=== PATIENT | male | born 1945 | race Caucasian/White ===

== ENCOUNTER 2018-05-30 20:53 | Emergency (ER) | payer OTHER ==
[~2018-05-30] VITALS: Ht 177.8 cm; Wt 95.2 kg
--- OUTSIDE RECORDS SUMMARY | ~2018-05-30 | XMS | Clinical Summary ---
Demographics + + + | Address | [address] | | | [place] [address] | + + + | Home Phone | | + + + | Preferred Language | Unknown | + + + | Marital Status | Single | + + + | Yazidi Affiliation | Unknown | + + + | Race | Unknown | + + + | Ethnic Group | Other Race | + + + Author + + + | Author | NON REVENUE LOCATIONS | + + + | Organization | NON REVENUE LOCATIONS | + + + | Address | Unknown | + + + | Phone | Unavailable | + + + Support + + +---------+ + | Name | Relationship | Address | Phone | + + +---------+ + | Sarah Romero | ECON | Unknown | | + + +---------+ + Care Team Providers + +------+ + | Care Central Stores Attendant Name | Role | Phone | + +------+ + | No Pcp Per Patient | PP | Unavailable | + +------+ + Source Comments BRAVO is fully live on both [facility] Ambulatory and [facility] InPatient.[facility] Allergies No Known Allergies Current Medications + + +-------+---------+------+------+-------+ | Prescription | Sig. | Disp. | Refills | Star | End | Statu | | | | | | t | Date | s | | | | | | Date | | | + + +-------+---------+------+------+-------+ | OMEPRAZOLE ORAL | take 1 capsule by | | | | | Activ | | | mouth every day | | | | | e | + + +-------+---------+------+------+-------+ | TERAZOSIN ORAL | take 1 tablet by | | | | | Activ | | | mouth every day | | | | | e | + + +-------+---------+------+------+-------+ | FINASTERIDE OR | Take by mouth once | | | 04/2 | | Activ | | | daily. | | | 220 | | e | | | | | | 10 | | | + + +-------+---------+------+------+-------+ | levothyroxine 12.5 | Take by mouth once | | | | | Activ | | mcg Oral Tablet | daily. | | | | | e | + + +-------+---------+------+------+-------+ Active Problems + + + | Problem | Noted Date | + + + | Pharyngeal cancer (HCC) | 12/14/2006 | + + + Social History + +-------+ +--------+ + | Tobacco Use | Types | Packs/Day | Years | Date | | | | | Used | | + +-------+ +--------+ + | Former Smoker | | | | Quit: 02/23/1994 | + +-------+ +--------+ + + + + | Sex Assigned at | Date Recorded | | | | + + + | Not on file | | + + + Last Filed Vital Signs + + + + | Vital Sign | Reading | Time Taken | + + + + | Blood Pressure | 131/81 | 05/24/2015 9:47 AM PDT | + + + + | Pulse | 61 | 05/24/2015 9:47 AM PDT | + + + + | Temperature | 36.4 C (97.5 F) | 05/24/2015 9:47 AM PDT | + + + + | Respiratory Rate | 18 | 04/22/2012 8:05 AM PST | + + + + | Oxygen Saturation | 98% | 05/24/2015 9:47 AM PDT | + + + + | Inhaled Oxygen | - | - | | Concentration | | | + + + + | Weight | 97.2 kg (214 lb 3.2 | 05/24/2015 9:47 AM PDT | | | oz) | | + + + + | Height | - | - | + + + + | Body Mass Index | - | - | + + + + Plan of Treatment + + + + + | Health Maintenance | Due Date | Last Done | Comments | + + + + + | Pneumococcal (Adult) | | | | | (1 of 2 - PCV13) | 9 | | | + + + + + | Influenza (Flu) | | | | | vaccination (#1) | 8 | | | + + + + + Results Not on filefrom Last 3 Months Insurance + +--------+ +--------+ + + | Payer | Benefi | Subscriber | Type | Phone | Address | | | t Plan | ID | | | | | | / | | | | | | | Group | | | | | + +--------+ +--------+ + + | [employer] | VA | [phone] | Indemn | | [address] | | CONTRACT | [place] | | ity | | [place] [id number] | | | RIAL | | | | | | | ACCT | | | | | | | CONTRA | | | | | | | CT | | | | | + +--------+ +--------+ + + | [employer] | VA | [phone] | Indemn | | [address] | | CONTRACT | [place] | | ity | | [place] [id number] | | | RIAL | | | | | | | ACCT | | | | | | | CONTRA | | | | | | | CT | | | | | + +--------+ +--------+ + + | [employer] | VA | [phone] | Indemn | | [address] | | CONTRACT | [place] | | ity | | [place] [address] | | | RIAL | | | | | | | ACCT | | | | | | | CONTRA | | | | | | | CT | | | | | + +--------+ +--------+ + + | [employer] | VA | [phone] | Indemn | | [address] | | CONTRACT | [place] | | ity | | [place] [address] | | | RIAL | | | | | | | ACCT | | | | | | | CONTRA | | | | | | | CT | | | | | + +--------+ +--------+ + + | [employer] | VA | [phone] | Agency | [phone] [address] | | ADMINISTRATION | COMMUN | | | [address] | [place] [address] | | | ITY | | | | | | | OUTSOU | | | | | | | RCE | | | | | + +--------+ +--------+ + + + +--------+ +--------+ + + | Guarantor Name | Accoun | Relation to | Date | Phone | Billing Address | | | t Type | Patient | of | | | | | | | | | | + +--------+ +--------+ + + | ROBIN ROMERO | Person | Self | [birth year] | Work: | [address] | | | juanita/Malik | | 1945 | +- | [place] [address] | | | divya | | | [address]: | | | | | | | | | | | | | | +- | | | | | | | [address] | | + +--------+ +--------+ + + | ROBIN ROMERO | Viral | Self | [birth year] | Work: | [address] | | | re | | 1945 | +1- | [place] [address] | | | Recurr | | | [address]: | | | | ing | | | | | | | | | | +- | | | | | | | [address] | | + +--------+ +--------+ + + | [id number] | [employer]kellie | Other | 02/23/ | | [address] | | | rial | | [address] | | [address] [place] [address], | | | | | | | [place] [address] | + +--------+ +--------+ + + | [id number] | Indust | Other | 02/23/ | | [address] | | | rial | | [address] | | [address] [place] [address], | | | | | | | [place] [address] | + +--------+ +--------+ + + | [id number] | Indust | Other | 01/01/ | | [address] | | | rial | | [address] | | [place] [address] | + +--------+ +--------+ + + | [id number] | Indust | Other | 02/23/ | | [address] | | | rial | | [address] | | [place] | + +--------+ +--------+ + + | ROBIN ROMERO | VA | Self | [birth year] | Work: | [address] | | | Lul | | 1945 | +- | [place] [address] | | | red | | | [address]: | | | | | | | | | | | | | | +- | | | | | | | [address] | | + +--------+ +--------+ + +"
--- OUTSIDE RECORDS SUMMARY | ~2018-05-30 | XMS | Clinical Summary ---
Demographics + + + | Address | [address] | | | [place] [address] | + + + | Home Phone | | + + + | Preferred Language | Unknown | + + + | Marital Status | Single | + + + | Moravian Affiliation | Unknown | + + + | Race | Unknown | + + + | Ethnic Group | Unknown | + + + Author + + + | Author | [facility] | | | and [place] | + + + | Organization | [facility] | | | and [place] | + + + | Address | Unknown | + + + | Phone | Unavailable | + + + Support + + +---------+ + | Name | Relationship | Address | Phone | + + +---------+ + | Nataliia Christine | ECON | Unknown | | + + +---------+ + Care Team Providers + +------+ + | Care Inspector Glass Or Mirror Name | Role | Phone | + +------+ + | Carrie KochP | PP | | + +------+ + Allergies No Known Allergies Medications + + + +---------+------+------+-------+ | Medication | Sig | Dispensed | Refills | Star | End | Statu | | | | | | t | Date | s | | | | | | Date | | | + + + +---------+------+------+-------+ | OMEPRAZOLE PO | Take 20 mg by mouth | | 0 | | | Activ | | | 2 times daily. | | | | | e | + + + +---------+------+------+-------+ | LEVOTHYROXINE | Take 125 mcg by | | 0 | | | Activ | | SODIUM PO | mouth. | | | | | e | + + + +---------+------+------+-------+ | finasteride | Take 5 mg by mouth | | 0 | | | Activ | | (PROSCAR) 5 mg | Daily. | | | | | e | | tablet | | | | | | | + + + +---------+------+------+-------+ | cetirizine | Take 10 mg by mouth | | 0 | | | Activ | | (ZYRTEC) 10 mg | nightly. | | | | | e | | tablet | | | | | | | + + + +---------+------+------+-------+ | Melatonin 10 MG | Take 1 tablet by | | 0 | | | Activ | | TABS | mouth nightly. | | | | | e | + + + +---------+------+------+-------+ | Lutein-Zeaxanthin | Take 1 capsule by | | 0 | | | Activ | | 25-5 MG CAPS | mouth Daily. | | | | | e | + + + +---------+------+------+-------+ | Cranberry 300 MG | Take 1 tablet by | | 0 | | | Activ | | TABS | mouth Daily. | | | | | e | + + + +---------+------+------+-------+ | | Take 1-2 tablets by | 30 | 0 | 02/2 | | Activ | | HYDROcodone-acetamin | mouth every 4 hours | tablet | | 8/20 | | e | | ophen (NORCO) 5-325 | as needed for Pain. | | | 18 | | | | mg per tablet | | | | | | | + + + +---------+------+------+-------+ Active Problems + + + | Problem | Noted Date | + + + | H/O Pharyngeal cancer | 04/22/2017 | + + + + + | Overview: chemotherapy & radiation at the [facility] 2006 | | Radiation to Airway | + + + + + | Hypothyroidism | 04/22/2017 | + + + | GERD (gastroesophageal reflux disease) | 04/22/2017 | + + + | H/O Nasal polyposis | 04/22/2017 | + + + | Maxillary sinus polyp | 04/22/2017 | + + + | Sinus bradycardia | 04/22/2017 | + + + Social History + + + +--------+ + | Tobacco Use | Types | Packs/Day | Years | Date | | | | | Used | | + + + +--------+ + | Former Smoker | Cigarettes | 1 | 20 | Quit: 02/24/1992 | + + + +--------+ + + +---+---+---+ | Smokeless Tobacco: | | | | | Never Used | | | | + +---+---+---+ + + +---------+ + | Alcohol Use | Drinks/We | oz/Week | Comments | | | ek | | | + + +---------+ + | Yes | 7 Shots | 4.2 | | | | of | | | | | liquor | | | + + +---------+ + + + + | Sex Assigned at | Date Recorded | | | | + + + | Not on file | | + + + + + + + | Job Start Date | Occupation | Industry | + + + + | Not on file | Not on file | Not on file | + + + + + + + + | Travel History | Travel Start | Travel End | + + + + + + | No recent travel history available. | + + Last Filed Vital Signs + + + + | Vital Sign | Reading | Time Taken | + + + + | Blood Pressure | 150/88 | 04/22/2017 1130 PST | + + + + | Pulse | 71 | 04/22/2017 1130 PST | + + + + | Temperature | 36.1 C (97 F) | 04/22/2017 1024 PST | + + + + | Respiratory Rate | 16 | 04/22/2017 1050 PST | + + + + | Oxygen Saturation | 96% | 04/22/2017 1130 PST | + + + + | Inhaled Oxygen | - | - | | Concentration | | | + + + + | Weight | 96 kg (211 lb 10.3 | 04/22/2017833 PST | | | oz) | | + + + + | Height | 177.8 cm (5' 10") | 04/22/2017833 PST | + + + + | Body Mass Index | 30.37 | 04/22/2017 0834 PST | + + + + Plan of Treatment + + + + + | Health Maintenance | Due Date | Last Done | Comments | + + + + + | Vaccine: | | | | | Dtap/Tdap/Td (1 - | 3 | | | | Tdap) | | | | + + + + + | Vaccine: Zoster (1 | | | | | of 2) | 4 | | | + + + + + | Vaccine: | | | | | Pneumococcal 65+ | 9 | | | | Low/Medium Risk (1 | | | | | of 2 - PCV13) | | | | + + + + + | Vaccine: Influenza | | | | | (Season Ended) | 9 | | | + + + + + Results Not on filefrom Last 3 Months Insurance + +--------+ +--------+ +---------+--------+ | Payer | Benefi | Subscriber | Effect | Phone | Address | Type | | | t Plan | ID | von | | | | | | / | | Dates | | | | | | Group | | | | | | + +--------+ +--------+ +---------+--------+ | [employer] | [employer] | [id number] | | | | Indemn | | | NS | | 018-Pr | | | ity | | | CHOICE | | esent | | | | + +--------+ +--------+ +---------+--------+ | [employer]MIN | VETER[employer] | [id number] | | | | Indemn | | | NS | | 018-Pr | | | ity | | | ADMIN | | esent | | | | | | [place] | | | | | | | | [place] | | | | | | + +--------+ +--------+ +---------+--------+ | MEDICARE | MEDICA | [id number] | | [phone] | | Medica | | | RE | | 018-Pr | 5 | | re | | | PART A | | esent | | | | + +--------+ +--------+ +---------+--------+ + +--------+ +--------+ + + | Guarantor Name | Accoun | Relation to | Date | Phone | Billing Address | | | t Type | Patient | of | | | | | | | | | | + +--------+ +--------+ + + | Brendan Romero | Person | Self | [birth year] | | [address] | | | al/Fam | | 1945 | [phone] | [place] [address] | | | divya | | | 9 (Home) | | + +--------+ +--------+ + + Advance Directives Patient has advance care planning documents on file. For more information, please contact:[facility] [place] [address]
--- OUTSIDE RECORDS SUMMARY | ~2018-05-30 | XMS | Clinical Summary ---
Demographics + + + | Address | [address] | | | [place] [address] | + + + | Home Phone | | + + + | Preferred Language | Unknown | + + + | Marital Status | Single | + + + | Islam Affiliation | Unknown | + + + | Race | Unknown | + + + | Ethnic Group | Unknown | + + + Author + + + | Author | [facility] | | | and [place] | + + + | Organization | [facility] | | | and [place] | [...] Team Providers + +------+ + | Care Project Manager Finance Name | Role | Phone | + [...] | Overview: chemotherapy & radiation at the [facility] 2006 | | Radiation to [...] +---------+--------+ | [employer]MIN | VET[employer]A | [id number] | | | | Indemn | | | NS | | 018-Pr | | | ity | | | CHOICE | | esent | | | | + +--------+ +--------+ +---------+--------+ | [employer] ADMIN | VETERA | [id number] | | | | Indemn | | | NS | | 018-Pr | | | ity | | | ADMIN | | esent | | | | | | [place] | | | | | | | | [place] | | | | | | + +--------+ +--------+ +---------+--------+ | MEDICARE | MEDICA | [id number] | | [phone] | | Medica | [...] Person | Self | [birth year] | | [address] | | | al/Fam | | 1945 | [phone] | [place] [address] | | | divya | | | 9 (Home) | | + +--------+ +--------+ + + Advance Directives Patient has advance care planning documents on file. For more information, please contact:[facility] [place] [address]
--- OUTSIDE RECORDS SUMMARY | ~2018-05-30 | XMS | Clinical Summary ---
Demographics + + + | Address | [address] | | | [place] [address] | + + + | Home Phone | | + + + | Preferred Language | Unknown | + + + | Marital Status | Single | + + + | Oriental Orthodox Affiliation | Unknown | + + + [...] Team Providers + +------+ + | Care Strategic Account Executive Name | Role | Phone | + +------+ + | No Pcp Per Patient | PP | Unavailable | + +------+ + Source Comments BRAVO is fully live on both [facility] Ambulatory and [facility] InPatient.[facility] Allergies No Known Allergies Current Medications + [...] xxxxxxxxx | Indemn | | [address] | | CONTRACT | [employer] | | ity | | [place] [address] | | | RIAL | | | | | | | ACCT | | | | | | | CONTRA | | | | | | | CT | | | | | + +--------+ +--------+ + + | [employer] | VA | [phone] | Indemn | | [address] | | CONTRACT | [place] | | ity | | [place] [address] | | | RIAL | | | | | | | ACCT | | | | | | | CONTRA | | | | | | | CT | | | | | + +--------+ +--------+ + + | [employer] | VA | xxxxxxxxx | Indemn | | [address] | | CONTRACT | [place] | | ity | | [place] [address] | | | RIAL | | | | | | | ACCT | | | | | | | CONTRA | | | | | | | CT | | | | | + +--------+ +--------+ + + | [employer] | VA | xxxxxxxxx | Indemn | | [address] | | CONTRACT | [place] | | ity | | [place] [address] | | | RIAL | | | | | | | ACCT | | | | | | | CONTRA | | | | | | | CT | | | | | + +--------+ +--------+ + + | [employer] | VA | [phone] | Agency | [phone] | [address] | | ADMINISTRATION | COMMUN | | | [address] | [place] [address] | | | ITY | | | [...] | Self | [birth year] | Work: | [address] | | | juanita/Malik | | 1945 | +- | [place] [address] | | | divya | | | [address] Home: | | | | | | | | | | | | | | +- | | | | | | | [address] | | + +--------+ +--------+ + + | ROBIN ROMERO | Viral | Self | [birth year] | Work: | [address] | | | re | | 1945 | +1- | [place] [address] | | | Recurr | | | [address] Home: | | | | ing | | | | | | | | | | +- | | | | | | | [address] | | + +--------+ +--------+ + + | [id number] | Indkellie | Other | 02/23/ | | [address] | | | rial | | [address] | | [address] [place] [address], | | | | | | | [place] [address] | + +--------+ +--------+ + + | [id number] | Indust | Other | 02/23/ | | [address] | | | rial | | [address] | | [address] [place] [address], | | | | | | | [place] [address] | + +--------+ +--------+ + + | [id number] | Indust | Other | 01/01/ | | [address] | | | rial | | [address] | | [place] [address] | + +--------+ +--------+ + + | [id number] | Indust | Other | 02/23/ | | [address] | | | rial | | [address] | | [place] | + +--------+ +--------+ + + | ROBIN ROMERO | VA | Self | [birth year] | Work: | [address] | | | Lul | | 1945 | +- | [place] [address] | | | red | | | [address]: | | | | | | | | | | | | | | +- | | | | | | | [address] | | + +--------+ +--------+ + +"
[2018-05-30] MEDS ORDERED: TERAZOSIN HCL5 MG PO (21:08)
[2018-05-30] MEDS ORDERED: PROSCAR5 MG PO (21:09)
[2018-05-30] MEDS ORDERED: OMEPRAZOLE20 MG PO (21:09)
[2018-05-30] MEDS ORDERED: LEVOTHYROXINE50 MCG PO (21:10)
--- NOTE | 2018-06-01 13:56 | EKG ---
[facility] [address] [place] [address] Signed Sinus tachycardia Left axis deviation Abnormal ECG No previous ECGs available Confirmed by MYRNA ROY MD ([id number]) on 06/01/2018 1:56:07 PM Electronically Signed By: MYRNA ROY MD 06/01/18 1356 PATIENT NAME: ROBIN GAYTAN Electrocardiogram DATE OF : 43 PHYSICIAN: MYRNA ROY MD REPORT #: [id number] REPORT IS CONFIDENTIAL AND NOT TO BE RELEASED WITHOUT AUTHORIZATION
== END 2018-05-30 22:49 | disposition home or self-care (01) ==
LOC: ED 20:53
DX: B34.9 Viral infection, unspecified (principal); E03.9 Hypothyroidism, unspecified; Z79.899 Other long term (current) drug therapy
CPT/HCPCS: 71046; 80053; 81001; 83605; 85025; 87502; 93005; 93010; 99285-25

== ENCOUNTER 2018-07-08 06:55 | Day surgery (SDC) | payer OTHER ==
[~2018-07-08] VITALS: Ht 177.8 cm; Wt 95.7 kg
[~2018-07-08 06:55] MED LIST: LEVOTHYROXINE50 MCG PO; OMEPRAZOLE20 MG PO; PROSCAR5 MG PO; TERAZOSIN HCL5 MG PO
--- NOTE | 2018-07-08 09:10 | NUR ---
07/08/18 0910 Jenny,Mandie 0903 PT ARRIVED TO PACU ON 3L VIA NC, PT RESP SHALLOW AND UNLABORED. PT ENCOURAGED TO DEEP BREATHE. PT RESTING ON LEFT SIDE, PT WAKES TO TACTILE STIMULI AND IS REORIENTED TO PACU. PT DENIES PAIN AND NAUSEA.
--- NOTE | 2018-07-09 08:22 | OR ---
[facility] [address] [place], [place] [address] Signed DATE OF OPERATION: 07/08/2018 SURGEON: Ernestina Cabrera MD PREOPERATIVE DIAGNOSES: 1. History of Brown esophagus. 2. Hiatal hernia with gastroesophageal reflux disease. 3. History of Helicobacter pylori, untreated. 4. Squamous cell carcinoma of the tonsils, treated with radiation therapy. 5. Personal history of colonic polyps. 6. Diverticulosis. POSTOPERATIVE DIAGNOSES: 1. Mild gastroduodenitis. 2. Small hiatal hernia. 3. Distal esophagitis versus Brown esophagus. 4. 3 mm cecal polyp. 5. 3 mm polyp, distal right colon. 6. 3 mm polyp at 30 cm. 7. Moderate sigmoid diverticulosis. 8. Minimal internal hemorrhoids. PROCEDURES: 1. EGD with CLOtest and biopsies of the pyloric bulb, antrum, and GE junction. 2. Colonoscopy with hot biopsy. ESTIMATED BLOOD LOSS: None. INDICATIONS: Robin is a 73-year-old gentleman who has been asked to see me for a followup upper and lower endoscopy. In 2013, he had both upper and lower endoscopy through the [facility]. He is known to have a hiatal hernia with acid reflux. There was concern about Brown esophagus with biopsies. He told me he was positive for H pylori, but cannot remember being treated. He had squamous cell carcinoma of the tonsils, treated with radiation therapy. Consequently, he often has a dry throat. In addition, he is known to have a personal history of colonic polyps in 2014 along with his diverticulosis. He has been asked to see me for followup endoscopy. In the office, I gave Robin booklets on both upper and lower endoscopy. We reviewed those together in detail. He understands the nature of the 2 tests along with the risks including, but not limited to gas Electronically Signed By: ERNESTINA CABRERA MD 07/09/18 0822 PATIENT NAME: ROBIN GAYTAN OPERATIVE REPORT DATE OF : 43 REPORT #: [id number] PHYSICIAN: ERNESTINA CABRERA MD PCP: OSKAR SALAZAR REPORT IS CONFIDENTIAL AND NOT TO BE RELEASED WITHOUT AUTHORIZATION [facility] [address] [place], [place] [address] Signed bloating, crampy abdominal pain, bleeding, perforation requiring surgery, and missed diagnosis. He had expressed understanding and wished to proceed. DESCRIPTION OF PROCEDURE: Robin was taken into our endoscopy suite and placed in a supine semi-recumbent position. He has a fairly stiff neck, so we were very careful to support his head with pillows and not extend his neck. The posterior oropharynx was anesthetized with Hurricaine spray. Bite block was utilized for the case. He was given a total of 6 mg of Versed and 150 mcg of fentanyl to cover both upper and lower endoscopy. The adult gastroscope was introduced and advanced out into the 3rd portion of the duodenum under direct visualization of the camera without difficulty. The 2nd and 3rd portions of the duodenum were unremarkable. He had very minimal irritation in his pyloric bulb along with the distal portion of his stomach. We went and took biopsies out of the pyloric bulb and the antrum for pathologic review. An additional biopsy was taken out of the antrum for CLOtest. Upon retroflexion of scope, he has just a tiny hiatal hernia. There was no gastric or esophageal varices. The scope was withdrawn up through the GE junction, which was compliant without stricture. He does have irritation and disruption to the Z-line. Consequently, we took several biopsies in this area for pathologic review. With the granulation tissue, it did bleed easily. No obvious irritation in the mid or upper esophagus. The gas was suctioned out and the scope was withdrawn. The vocal cords and arytenoids looked unremarkable. He did have some dry thick saliva in the posterior oropharynx. After this, the gastroscope was removed. Robin tolerated the procedure quite well. Robin was then rotated into the left lateral decubitus position. Again, care was taken to support his head and the pillow was folded to keep his head and neck in a neutral position. He was maintained on his IV sedation with the Versed and fentanyl. A digital rectal exam was performed and he has a slightly enlarged and indurated prostate gland. The left side seems more prominent than the right. The adult colonoscope was introduced and advanced all the way into the cecum under direct visualization of camera. It took a little extra sedation and some abdominal compression in order to push the scope into the cecum itself. His prep was overall good. We suctioned out some areas of liquid particulate stool matter. The above-mentioned tiny polyps were removed with the help of hot biopsy forceps. The scope had been withdrawn. We had taken pictures throughout for photodocumentation. He does have moderate left-sided diverticulosis. They were moderate in size, moderate in number, and scattered about. The rectum showed some prominent vasculature, but otherwise was unremarkable. Upon retroflexion of the scope, he had some very minimal internal hemorrhoid tissue. The gas was then suctioned out and the colonoscope removed. Robin tolerated the procedure quite well. RECOMMENDATIONS: I will see Robin back in my office in 7 to 14 days to review his results. Electronically Signed By: ERNESTINA CABRERA MD 07/09/18 0822 PATIENT NAME: ROBIN GAYTAN OPERATIVE REPORT DATE OF : 43 REPORT #: [id number] PHYSICIAN: ERNESTINA CABRERA MD PCP: OSKAR SALAZAR REPORT IS CONFIDENTIAL AND NOT TO BE RELEASED WITHOUT AUTHORIZATION [address] [place] [address] Signed Ernestina Cabrera MD [facility] /[id number] cc: ROBERT Pierre MD Copies: OSKAR SALAZAR ANDREW L MD ~ Electronically Signed By: ERNESTINA CABRERA MD 07/09/18 0822 PATIENT NAME: ROBIN GAYTAN OPERATIVE REPORT DATE OF : 43 REPORT #: [id number] PHYSICIAN: ERNESTINA CABRERA MD PCP: OSKAR SALAZAR REPORT IS CONFIDENTIAL AND NOT TO BE RELEASED WITHOUT AUTHORIZATION
== END 2018-07-08 09:45 | disposition home or self-care (01) ==
LOC: DS 06:55 → OPS 06:55
PROVIDERS: Colon & Rectal Surgery
PROC: 0DB48ZX Excision of Esophagogastric Junction, Via Natural or Artificial Opening Endoscopic, Diagnostic (ICD-10-PCS; 2018-07-08)
PROC: 0DBH8ZZ Excision of Cecum, Via Natural or Artificial Opening Endoscopic (ICD-10-PCS; 2018-07-08)
PROC: 0DBK8ZZ Excision of Ascending Colon, Via Natural or Artificial Opening Endoscopic (ICD-10-PCS; 2018-07-08)
PROC: 0DB98ZX Excision of Duodenum, Via Natural or Artificial Opening Endoscopic, Diagnostic (ICD-10-PCS; principal; 2018-07-08 08:15)
PROC: 0DB78ZX Excision of Stomach, Pylorus, Via Natural or Artificial Opening Endoscopic, Diagnostic (ICD-10-PCS; 2018-07-08 08:15)
DX: Z12.11 Encounter for screening for malignant neoplasm of colon (principal); K63.5 Polyp of colon; K64.8 Other hemorrhoids; K29.80 Duodenitis without bleeding; K29.50 Unspecified chronic gastritis without bleeding; K21.0 Gastro-esophageal reflux disease with esophagitis; K44.9 Diaphragmatic hernia without obstruction or gangrene; Z86.010 Personal history of colon polyps; E66.9 Obesity, unspecified; Z68.30 Body mass index [BMI] 30.0-30.9, adult; Z79.899 Other long term (current) drug therapy; Z85.828 Personal history of other malignant neoplasm of skin
CPT/HCPCS: 86677; 88305; 99153; G0500; J2250; J3010; J7120

== ENCOUNTER 2020-03-22 05:40 | Day surgery (SDC) | payer OTHER ==
[~2020-03-22] VITALS: Ht 177.8 cm; Wt 96.8 kg
--- NOTE | 2020-03-22 06:16 | NUR ---
PAIN R KNEE 05/02 D/T ARTHRITIS
--- NOTE | 2020-03-22 07:48 | NUR ---
03/22/20 0748 Madeleine Foster 0743 PATIENT ARRIVES TO PACU SLEEPING. AWAKENS WITH REPEATED VERBAL STIMULI, BACK TO SLEEP WHEN NOT STIMULATED. RESP EVEN AND UNLABORED, NC AT 2LITERS. 0745 OXYGEN OFF.
--- NOTE | 2020-03-22 13:45 | NUR ---
PT ALERT, ORIENTED AND HAS HAD PREVIOUS EGD. ALL QUESTIONS ASKED ANSWERED, PT REQUESTED PRAYER. PT'S RIDE IS WAITING OUTSIDE. WILL FOLLOW
--- NOTE | 2020-03-23 11:15 | OR ---
[facility] [address], [place] [address] Signed DATE OF OPERATION: 03/22/2020 SURGEON: Ernestina Cabrera MD PREOPERATIVE DIAGNOSES: 1. Hiatal hernia. 2. Gastroesophageal reflux disease. 3. 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 4. Questionable history of Brown's esophagus. 5. Allergic rhinitis. 6. EGD in 2019. POSTOPERATIVE DIAGNOSES: 1. Mild gastroduodenitis. 2. Hiatal hernia (45-42 cm). 3. No obvious visible Brown's esophagus. 4. Irritated soft palate. PROCEDURES: EGD with CLOtest and biopsies of the pyloric bulb, antrum and GE junction. ESTIMATED BLOOD LOSS: None. INDICATIONS: Robin is a 75-year-old gentleman asked to see me for a repeat upper endoscopy. He is known to have a small hiatal hernia with acid reflux. He feels like he is having breakthrough symptoms despite the omeprazole. He felt like the sucralfate was helping quite a bit. There is a concern whether or not he had Brown's esophagus in the past. Biopsies from 2019 were unremarkable with respect to goblet cells. He has also had radiation therapy for his squamous cell carcinoma of the tonsils. He said that made his mouth a bit dry. However, he does have allergic rhinitis and he talked about it even this morning. In the office, I gave Dilip pamphlet on upper endoscopy and we looked at that together along with the risks including, but not limited to gas bloating, crampy abdominal pain, bleeding, perforation requiring surgery, and missed diagnosis. He had expressed understanding and wished to proceed. DESCRIPTION OF PROCEDURE: Robin was taken into our endoscopy suite and placed in the supine semi-recumbent position. The posterior oropharynx was anesthetized with lidocaine spray. A bite block Electronically Signed By: ERNESTINA CABRERA MD 03/22/20 0898 Electronically Signed By: ERNESTINA CABRERA MD 03/23/20 1407 PATIENT NAME: ROBIN GAYTAN OPERATIVE REPORT DATE OF : 43 REPORT #: [id number] PHYSICIAN: ERNESTINA CABRERA MD PCP: CARRIE SALAZAR REPORT IS CONFIDENTIAL AND NOT TO BE RELEASED WITHOUT AUTHORIZATION [facility] [address] [place], [place] [address] Signed was utilized for the case. He was given a total of 4 mg of Versed and 100 mcg of fentanyl to cover the case. The adult gastroscope was introduced and advanced under direct visualization of the camera. He had once again some mild erythematous changes in the pyloric bulb and in the stomach. We went ahead and took a biopsy of the pyloric bulb as well as the antrum of the stomach. No obvious ulcerations. We took an additional biopsy for CLOtest from the antrum. Upon retroflexion of scope, we could see his hiatal hernia once again. The scope was withdrawn up to the area of the GE junction, which was compliant without stricture. We measured his hiatal hernia from 45 cm back to 42 cm. He had just a little irritation on the one side of his hiatal hernia. He had minimal disruption to the Z-line. There was no visible Brown's esophagus. We went ahead and took a biopsy along the Z-line for pathologic review. We saw no inflammatory changes in his distal, middle or upper esophagus. The scope had been withdrawn. We could see that his vocal cords move quite nicely. We did not see any obvious irritation around the vocal cords or his arytenoids. Although, the soft palate was a little irritated. They were may not be from his allergic rhinitis. He also wears dentures. After this, the gas had been suctioned out and the gastroscope removed. Robin tolerated his procedure quite well. RECOMMENDATIONS: I will see Robin back in my office in 7 to 14 days to review his results. Ernestina Cabrera MD ALB/LILLIANL /[id number] cc: MD Carrie Padilla FNP Copies: ERNESTINA CABRERA MD, DANA FNP ~ Electronically Signed By: ERNESTINA CABRERA MD 03/22/20 0827 Electronically Signed By: ERNESTINA CABRERA MD 03/23/20 1407 PATIENT NAME: ROBIN GAYTAN OPERATIVE REPORT DATE OF : 43 REPORT #: [id number] PHYSICIAN: ERNESTINA CABRERA MD PCP: CARRIE SALAZAR REPORT IS CONFIDENTIAL AND NOT TO BE RELEASED WITHOUT AUTHORIZATION
--- NOTE | 2020-03-26 11:37 | PATH ---
[facility] [address] [place], [place] [address] Signed SPECIMEN(S): A DUODENAL BULB BIOPSY SPECIMEN(S): B ANTRUM/PYLORUS BIOPSY SPECIMEN(S): C GE JUNCTION SPECIMEN SOURCE: A. DUODENAL BULB BIOPSY B. ANTRUM/PYLORUS BIOPSY C. GE JUNCTION CLINICAL HISTORY: Hiatal hernia, reflux. Gastritis. MICROSCOPIC DESCRIPTION: Histologic sections of all submitted blocks are examined by light microscopy. These findings, together with the gross examination, support the pathologic diagnosis. FINAL PATHOLOGIC DIAGNOSIS: A. Duodenum, bulb, biopsy: - Duodenal mucosa with no histopathologic abnormality. - Negative increased intraepithelial lymphocytes. - Negative for dysplasia or malignancy. B. Stomach, antrum/pylorus, biopsy: - Antral mucosa with no histopathologic abnormality. - Negative for Helicobacter organisms on HE stain. - Negative for dysplasia or malignancy. C. Gastroesophageal junction, biopsy: - Squamocolumnar junctional mucosa with chronic inflammation and reactive changes, compatible with reflux esophagitis. - Negative for intestinal metaplasia, dysplasia or malignancy. NAL:cml:C2NR GROSS DESCRIPTION: Three specimens are received in three containers, labeled "JH." A. The specimen, labeled "JH, duodenal bulb biopsy," is received in formalin and consists of one gage soft tissue fragment that measures 0.2 cm in greatest dimension. The specimen is entirely submitted in cassette (A1). B. The specimen, labeled "JH, antrum biopsy," is received in formalin and consists of one gage soft tissue fragment that measures 0.2 cm in greatest dimension. The specimen is entirely submitted in cassette (B1). PATIENT NAME: ROBIN GAYTAN PATHOLOGY DATE OF : 43 REPORT #: [id number] PHYSICIAN: ROOPA FOUNTAIN PCP: OSKAR SALAZAR REPORT IS CONFIDENTIAL AND NOT TO BE RELEASED WITHOUT AUTHORIZATION [facility] [address] [place] [address] Signed C. The specimen, labeled "JH, GE junction biopsy," is received in formalin and consists of one gage soft tissue fragment that measures 0.4 cm in greatest dimension. The specimen is entirely submitted in cassette (C1). JS (under the direct supervision of a pathologist) The Gross Description was prepared using a voice recognition system. The report was reviewed for accuracy; however, sound-alike word errors, addition and/or deletions may occur. If there is any question about this report, please contact Client Services. PERFORMING LABORATORY: The technical component was performed by [employer] [address] (Stone And Plate Preparer Apprentice: Ana Miller MD; CLIA# [id number]). Professional interpretation was performed by [employer], [address] [address] (CLIA# [id number]). Diagnostician: Emily Maldonado MD Pathologist Electronically Signed 03/26/2020 Copies: ~ PATIENT NAME: ROBIN GAYTAN PATHOLOGY DATE OF : 43 REPORT #: [id number] PHYSICIAN: ROOPA FOUNTAIN PCP: OSKAR SALAZAR REPORT IS CONFIDENTIAL AND NOT TO BE RELEASED WITHOUT AUTHORIZATION
== END 2020-03-22 08:40 | disposition home or self-care (01) ==
LOC: OPS 05:40 → DS 05:40 → OPS 06:45 → DS 06:45 → OPS 08:40 → DS 09:00
PROVIDERS: ATTEND Colon & Rectal Surgery
PROC: 0DB68ZZ Excision of Stomach, Via Natural or Artificial Opening Endoscopic (ICD-10-PCS; principal; 2020-03-22 06:45)
DX: K21.00 Gastro-esophageal reflux disease with esophagitis, without bleeding (principal); K44.9 Diaphragmatic hernia without obstruction or gangrene; K29.90 Gastroduodenitis, unspecified, without bleeding; E03.9 Hypothyroidism, unspecified; N40.0 Benign prostatic hyperplasia without lower urinary tract symptoms; E66.9 Obesity, unspecified; J30.9 Allergic rhinitis, unspecified; K13.29 Other disturbances of oral epithelium, including tongue; Z85.818 Personal history of malignant neoplasm of other sites of lip, oral cavity, and pharynx; Z92.3 Personal history of irradiation; Z86.010 Personal history of colon polyps; Z80.0 Family history of malignant neoplasm of digestive organs; Z68.30 Body mass index [BMI] 30.0-30.9, adult; Z87.891 Personal history of nicotine dependence
CPT/HCPCS: 86677; G0500; J2250; J3010; J7121

== ENCOUNTER 2022-01-18 10:27 | Emergency (ER) | payer OTHER ==
[~2022-01-18] VITALS: Ht 177.8 cm; Wt 96.6 kg
[2022-01-18] MEDS ORDERED: HYDROXYZINE HCL25 MG PO (11:06)
[2022-01-18] MEDS ORDERED: CETIRIZINE HCL10 MG PO (11:06)
[2022-01-18] MEDS ORDERED: NEURONTIN300 MG PO (11:06)
[2022-01-18] MEDS ORDERED: TAMIFLU75 MG PO (13:19)
== END 2022-01-18 13:35 | disposition home or self-care (01) ==
LOC: ED 10:27
DX: J10.1 Influenza due to other identified influenza virus with other respiratory manifestations (principal); R33.9 Retention of urine, unspecified; Z20.822 Contact with and (suspected) exposure to COVID-19; E03.9 Hypothyroidism, unspecified; Z87.891 Personal history of nicotine dependence; Z79.899 Other long term (current) drug therapy
CPT/HCPCS: 51702; 81001; 87502; 99284; C9803; U0003

== ENCOUNTER 2024-02-15 10:39 | Emergency (ER) | payer OTHER ==
[~2024-02-15] VITALS: Ht 177.8 cm; Wt 93.5 kg
[~2024-02-15 10:39] MED LIST changes: +CETIRIZINE HCL10 MG PO; +HYDROXYZINE HCL25 MG PO; +NEURONTIN300 MG PO; +TAMIFLU75 MG PO
[2024-02-15 11:23] VITALS: BP 133/86
== END 2024-02-15 11:24 | disposition home or self-care (01) ==
LOC: ED 10:39
DX: R21 Rash and other nonspecific skin eruption (principal); E89.0 Postprocedural hypothyroidism; Z87.891 Personal history of nicotine dependence; Z85.850 Personal history of malignant neoplasm of thyroid; Z79.890 Hormone replacement therapy; Z79.899 Other long term (current) drug therapy
CPT/HCPCS: 99282

== ENCOUNTER 2025-01-25 23:09 | Observation (INO) | payer OTHER ==
[~2025-01-25] VITALS: Ht 177.8 cm; Wt 93.4 kg
[~2025-01-25 23:09] MED LIST changes: +LEVOTHYROXINE125 MCG PO; -LEVOTHYROXINE50 MCG PO
[2025-01-25 23:35] LABS: BASOPHILS 0.7 % (0.2-1.2); EOSINOPHILS 2.8 % (0.8-7.0); LYMPHOCYTES 22.6 % (21.8-53.1); MCH 27.6 PG (25.7-32.2); MCHC 33.7 g/dL (32.3-36.5); MCV 81.9 fL (79.0-92.2); MONOCYTES 9.5 % (5.3-12.2); NEUTROPHILS 64.1 % (34.0-67.9); RBC 5.08 M/uL (4.63-6.08)
[2025-01-26] VITALS (10 sets, daily range): BP systolic 147–188; BP diastolic 78–96
[2025-01-26 00:02] LABS: ALT (SGPT) 21.0 U/L (14-59); AST (SGOT) 22.0 U/L (15-37); GLOMERULAR FILTRATION RATE,EST 74.0 mL/min (>60); PROTEIN, TOTAL 7.1 g/dL (6.4-8.2); UREA NITROGEN 11.0 mg/dL (7-18)
[2025-01-26] MEDS ORDERED: SODIUM CHLORIDE 0.9% 1,000 ML IV PRN (00:45)
[2025-01-26 01:03] LABS: CORONAVIRUS COVID-19 AG NEGATIVE (NEGATIVE)
[2025-01-26 02:52] LABS: BLOOD/HGB, URINE NEGATIVE (Negative); KETONE, URINE NEGATIVE (Negative); LEUK ESTERASE, URINE NEGATIVE (negative); NITRITE, URINE NEGATIVE (negative)
[2025-01-26] MEDS ORDERED: ACETAMINOPHEN 500 MG TAB PO ONE (03:30)
[2025-01-26 04:28] LABS: GLOMERULAR FILTRATION RATE,EST 77.0 mL/min (>60); UREA NITROGEN 9.0 mg/dL (7-18)
[2025-01-26] MEDS ORDERED: ACETAMINOPHEN 325 MG TAB PO PRN ×2 (06:00→11:15)
--- NOTE | 2025-01-26 06:45 | NUR ---
RECIEVED REPORT FROM SARAY, RN. PT AMBULATED TO MED SURG BED WITH SBA. VS TAKEN, WEIGHT TAKEN, CHARGE AT BEDSIDE COMPLETING ADMISSION. IV FLUSHED AND TELE PLACED. FRESH WATER GIVEN, AT BEDSIDE, CALL LIGHT WITHIN REACH, BED LOWERED.
--- NOTE | 2025-01-26 07:03 | NUR ---
RECIEVED REPORT FROM MILAGRO CHERY. PT IS RESTING IN BED WITH EYES CLOSED. RR EVEN AND UNLABORED. CALL LIGHT AND PERSONAL BELONGINGS ARE WITHIN REACH.
--- NOTE | 2025-01-26 08:15 | NUR ---
NOTIFIED DR. GALAVIZ OF PT REQUESTING PROTONIX BEFORE BREAKFAST; TO PUT IN ORDERS.
--- NOTE | 2025-01-26 08:20 | NUR ---
NOTIFIED MD OF PT REQUESTING OMEPRAZOLE BEFORE BREAKFAST, MD TO PUT ORDERS IN.
--- NOTE | 2025-01-26 08:24 | NUR ---
THIS RN IN TO ROOM TO GIVE MORNING MED - PT REQUESTED BEFORE BREAKFAST. PT DENIES ANY OTHER NEEDS, SITTING UP IN BED HAVING BREAKFAST, PRESENT AT BEDSIDE. CALL LIGHT WITHIN REACH.
--- NOTE | 2025-01-26 08:50 | NUR ---
PT RESTING IN BED WITH FINISHED BREAKFAST TRAY. AT BEDSIDE. PT DENIES ANY NEEDS AT THIS TIME. CALL LIGHT WITHIN REACH. BREAKFAST TRAY REMOVED FROM ROOM.
[2025-01-26] MEDS ORDERED: PANTOPRAZOLE SODIUM 40 MG TABEC PO SCH (09:00)
--- NOTE | 2025-01-26 09:08 | NUR ---
PT RESTING IN BED WITH EYES OPEN. CALL LIGHT AND PERSONAL BELONGINGS WITHIN REACH. PT DENIES ANY NEEDS AT THIS TIME. REMAINS AT BEDSIDE
--- NOTE | 2025-01-26 09:48 | NUR ---
Spoke with Brendan. He lives in a modular home with 5 steps. He denies any needs as he is independent. He does not have any issues getting in or out of the home. Pt drives, shops, cooks. Girlfriend is present and is also independent. Pt states he cont. with a headache and does agree to take Tylenol when RN in the room. Pt denies any needs and plans on dc to home when medically cleared. He is now waiting for an MRI. Pt denies financial or safety issues.
--- NOTE | 2025-01-26 10:12 | NUR ---
PT RESTING IN BED. RR EVEN AND UNLABORED. REMAINS AT BEDSIDE
--- NOTE | 2025-01-26 10:35 | NUR ---
PATIENT IS OFF THE FLOOR AT THIS TIME FOR MRI.
--- NOTE | 2025-01-26 10:51 | NUR ---
PATIENT IS SITTING ON THE EDGE OF THE BED RIGHT NOW, ONCOLOGY SOCIAL WORKER CHARTED VITALS AND I&O'S, PUT TELE BACK ON, CALL LIGHT WITH IN REACH, IN ROOM, NOTHING ELSE NEEDED AT THIS TIME.
[2025-01-26] MEDS ORDERED: KETOROLAC TROMETHAMINE 15 MG/ML VIAL IV PRN (11:15)
[2025-01-26] MEDS ORDERED: LEVOTHYROXINE SODIUM 50 MCG TAB PO SCH (11:29)
[2025-01-26] MEDS ORDERED: PHARMACY RENAL DOSE ADJUSTMENT 1 DOSE MISC PO SCH (12:00)
--- NOTE | 2025-01-26 12:05 | NUR ---
PT RESTING IN BED WITH EYES OPEN, MUTTERING TO SELF. RR EVEN AND UNLABORED. CALL LIGHT IS WITHIN REACH.
--- NOTE | 2025-01-26 12:10 | NUR ---
PT RESTING IN BED WITH EYES CLOSED. RR EVEN AND UNLABORED. CALL LIGHT WITHIN REACH. IS AT BEDSIDE
--- NOTE | 2025-01-26 12:56 | NUR ---
UR CLINICAL REVIEW: ALVIN, MEETS OBS FOR GENERAL CRITERIA FOR HYPERTENSION TREND SODIUM, IV FLUIDS, MRI NEEDED, PT/OT/ST EVALUATIONS [facility] OBS 01/26/2025 @ 0555 ORDER MATCHES REG AUTH PENDING, CLINICALS SENT VIA RIGHTFAX PLAN TO DC TO HOME WHEN MEDICALLY READY. 01/27/2025
--- NOTE | 2025-01-26 13:43 | NUR ---
ADJUSTED PT'S TELE LEADS. PT DENIES ANY FURTHER NEEDS. AT BEDSIDE, CALL LIGHT AND PERSONAL BELONGING ARE WITHIN REACH.
--- NOTE | 2025-01-26 13:45 | NUR ---
PATIENT IS IN BED AT THIS TIME, IS IN ROOM, PRIVATE BRANCH EXCHANGE SERVICE ADVISOR CHARTED VITALS AND I&O'S, EMPTIED URINAL, CALL LIGHT WITH IN REACH AND NOTHING ELSE NEEDED AT THIS TIME.
--- NOTE | 2025-01-26 14:04 | NUR ---
PT RESTING IN BED WITH EYES CLOSED. HOB IS ELEVATED, RR EVEN AND UNLABORED. REMAINS AT BEDSIDE. CALL LIGHT AND PERSONAL BELONGINGS ARE WITHIN REACH.
[2025-01-26] MEDS ORDERED: ASMANEX220 MC1 INH (15:44)
--- NOTE | 2025-01-26 16:36 | NUR ---
PT RESTING IN BED WITH EYES OPEN, PLAYING SOFT MUSIC. HOB IS ELEVATED AND LIGHTS ARE OFF. PT REPORTS THAT THE PAIN SEEMS TO SUBSIDE WHILE LAYING DOWN, BUT COMES BACK IN FULL FORCE WHEN HE GETS UP. PT STATES PAIN IS TOLERABLE AT THIS TIME. DENIES ANY NEEDS. CALL LIGHT IS WITHIN REACH. REMAINS AT BEDSIDE
--- NOTE | 2025-01-26 17:34 | NUR ---
PT SITTING UP IN BED WITH DINNER TRAY. PT DENIES NEEDS AT THIS TIME. REMAINS AT BEDSIDE. CALL LIGHT AND PERSONAL BELONGINGS ARE WITHIN REACH.
[2025-01-26] MEDS ORDERED: [UNRECOGNIZED DRUG - OTHER] PO (17:50)
[2025-01-26] MEDS ORDERED: B-121000 MC2 PO (17:51)
[2025-01-26] MEDS ORDERED: VITAMIN D325 MCG PO (17:51)
[2025-01-26] MEDS ORDERED: CHROMIUM PO (17:51)
[2025-01-26] MEDS ORDERED: ANECREAM5 GM TOP (17:52)
[2025-01-26] MEDS ORDERED: LIDODERM1 EACH TOP (17:53)
[2025-01-26] MEDS ORDERED: ARTIFICIAL TEAR15 M6 OU (17:53)
[2025-01-26] MEDS ORDERED: SUDOGEST30 MG PO (17:54)
--- NOTE | 2025-01-26 17:54 | NUR ---
MED REC COMPLETE
--- NOTE | 2025-01-26 18:18 | NUR ---
PATIENT IS IN BED AT THIS TIME, CASING INSPECTOR CHARTED VITALS AND I&O'S, IN ROOM, CALL LIGHT WITH IN REACH, GOT WARM BLANKETS FROM WARMER, NOTHING ELSE NEEDED AT THIS TIME.
--- NOTE | 2025-01-26 19:25 | NUR ---
RECIEVED REPORT FROM MILAGRO DAN. PT LAYING IN BED WITH AT BEDSIDE. WHITEBOARD UPDATED. PT REPORT HEADACHE WHEN GETTING UP TO USE THE RESTROOM, PT REQUESTS URINAL AT BEDSIDE, GIVEN. NO OTHER NEEDS AT THIS TIME, CALL LIGHT WITHIN REACH.
--- NOTE | 2025-01-26 20:20 | NUR ---
PTS VS TAKEN, MEDS GIVEN PER ORDER, PT REPORTS 5/10 HEADACHE, PRN PAIN MED GIVEN. PTS PILLS CRUSHED PER REQUEST. PT ASSESSMENT COMPLETE, PT REQUESTING SNACKS AND SANDWICH BOX, GIVEN. NO OTHER NEEDS AT THIS TIME, CALL LIGHT WITHIN REACH, URINAL EMPTIED.
--- NOTE | 2025-01-26 20:44 | NUR ---
RT SPOKE TO PATIENT ABOUT A HOME CPAP/BIPAP, OXYGEN OR TREATMENTS. ROBIN STATED THAT HE DOES NOT HAVE HOME OXYGEN OR A HOME CPAP/BIPAP. HE DOES ONE PUFF BID OF MOMETASONE WITH ALB PRN. HE STATED THAT HE DOES NOT NEED A PRN ALBUTEROL AND WILL RESUME HIS MOMETASONE WHEN HE GETS HOME.
[2025-01-26] MEDS ORDERED: GABAPENTIN 300 MG CAP PO SCH (21:00)
[2025-01-26] MEDS ORDERED: FINASTERIDE 5 MG TAB PO SCH (21:00)
[2025-01-26] MEDS ORDERED: DOXAZOSIN MESYLATE 4 MG TAB PO SCH (21:00)
[2025-01-26] MEDS ORDERED: BUDESONIDE 0.5 MG/2 ML VIAL INH SCH (21:00)
--- NOTE | 2025-01-26 22:30 | NUR ---
PTP LAYING IN BED, EYES CLOSED, UNLABORED BREATHING. TELE ON PT, SIGNIFICANT OTHER AT BEDSIDE. NO NEEDS AT THIS TIME, CALL LIGHT WITHIN REACH.
[2025-01-27] VITALS (8 sets, daily range): BP systolic 114–141; BP diastolic 54–77
--- NOTE | 2025-01-27 00:26 | NUR ---
PT LAYING IN BED EYES CLOSED, UNLABORED BREATHING. CALL LIGHT WITHIN REACH, AT BEDSIDE.
--- NOTE | 2025-01-27 02:46 | NUR ---
PT REPOSITIONED IN BED WITH PILLOW UNDER R SIDE AND UNDER BLE. NO OTHER NEEDS AT THIS TIME, PT PLAYING ON PHONE, CALL LIGHT WITHIN REACH.
--- NOTE | 2025-01-27 02:48 | NUR ---
PT LAYING IN BED ON PHONE, REPORTS HE FEELS "BETTER," PT UNABLE TO SLEEP AFTER 0200 VITALS. DENIES ANY NEEDS AT THIS TIME, CALL LIGHT WITHIN REACH, SIGNIFICANT OTHER AT BEDSIDE.
--- NOTE | 2025-01-27 04:10 | NUR ---
PT LAYING ON L SIDE, EYES CLOSED, UNLABORED BREATHING. SINIFICANT OTHER AT BEDSIDE, CALL LIGHT WITHIN REACH.
[2025-01-27 05:24] LABS: BASOPHILS 0.5 % (0.2-1.2); EOSINOPHILS 2.5 % (0.8-7.0); LYMPHOCYTES 19.9 % (21.8-53.1); MCH 27.3 PG (25.7-32.2); MCHC 33.4 g/dL (32.3-36.5); MCV 81.7 fL (79.0-92.2); MONOCYTES 10.2 % (5.3-12.2); NEUTROPHILS 66.8 % (34.0-67.9); RBC 4.76 M/uL (4.63-6.08)
[2025-01-27 05:52] LABS: ALT (SGPT) 18.0 U/L (14-59); AST (SGOT) 17.0 U/L (15-37); GLOMERULAR FILTRATION RATE,EST 67.0 mL/min (>60); PHOSPHORUS, INORGANIC 4.0 mg/dL (2.5-4.9); PROTEIN, TOTAL 6.1 g/dL (6.4-8.2); UREA NITROGEN 10.0 mg/dL (7-18)
[2025-01-27] MEDS ORDERED: LEVOTHYROXINE SODIUM 125 MCG TAB PO SCH (07:00)
--- NOTE | 2025-01-27 07:05 | NUR ---
REPORT REC'D FROM MILAGRO CELESTE. PT RESTING QUIETLY IN BED, AT BEDSIDE. TELE# [address] SB 50'S. NO ACUTE DISTRESS NOTED. CALL JOHANSEN IN REACH, BED IN LOW POSITION AND LOCKED, SIDERAILS UP X3.
--- NOTE | 2025-01-27 09:27 | NUR ---
CASE MANAGEMENT IN TO SEE PATIENT. ANTICIPATE DC IN AM.
--- NOTE | 2025-01-27 09:43 | NUR ---
PT REPORTS HORIZONTAL DOUBLE VISION AT TIME OF ASSESSMENT ACCOMPANIED BY LEFT TEMPORAL AND LEFT EYE PAIN. PT OFFERED PAIN MEDICATION, ACCEPTED 2 TYLENOL PO.
--- NOTE | 2025-01-27 09:58 | NUR ---
PT REQUESTED WARM WASH CLOTH AND SOAP FOR FACE AND HANDS. I PROVIDED THESE THINGS - IN THE BELTRAN TUB, GAVE PT A WARM WASH CLOTH WITH BODY SOAP MIXED WITH WARM WATER. PT WASHED FACE AND HANDS, PAYING EXTRA ATTENTION TO HIS EYES. THEN I GAVE PT WARM WASH CLOTH WITHOUT SOAP AND ENDED WITH A DRY HAND TOWEL. PT HAS CALL LIGHT AND NEXT TO HIM. RN WAS IN ROOM GIVING THE PT PAIN MEDICATION.
--- NOTE | 2025-01-27 10:48 | NUR ---
Spoke with Brendan. He states his headache has improved, but remains. He denies any needs. Girlfriend in the room. If pt discharges today she will take him home.
--- NOTE | 2025-01-27 11:50 | NUR ---
PT RESTING QUIETLY IN BED, USING TABLET. PT STATES " I AM BEING DISCHARGED". PT VERBALIZES NO C/O AT THIS TIME. RN AWAITING DC ORDERS TO BE PROCESSED. PT INSTRUCTED TO CALL FOR ASSISTANCE.
--- NOTE | 2025-01-27 13:06 | NUR ---
PT CONTINUES TO C/O PAIN TO LEFT TEMPORAL REGION,NOW 8/10. PT CONTINUES TO HAVE DOUBLE VISION WELL. DR. GALAVIZ INTO SEE PATIENT AND DISCUSS DC. AGREEABLE TO ADMINISTER 15MG IV TORADOL. PT INSTRUCTED WILL KEEP AN ADDITIONAL 30-45 MINUTES TO MONITOR PRIOR TO DISCHARGE. PT AGREEABLE. PT AT BEDSIDE. CALL JOHANSEN IN REACH, BED IN LOW POSITION AND LOCKED, SIDERAILS UP 2.
--- NOTE | 2025-01-27 13:55 | NUR ---
PT REPORTS PAIN 4/10 FOLLOWING TORADOL INJECTION. PT PENDING DISCHARGE ORDERS.
[2025-01-27] MEDS ORDERED: LISINOPRIL10 MG PO (14:20)
--- NOTE | 2025-01-27 22:15 | EKG ---
[facility] [address] [place] [address] Signed Normal sinus rhythm Left axis deviation Abnormal ECG When compared with ECG of 30-MAY-2018 20:59, Vent. rate has decreased BY 35 BPM Confirmed by Kevin Galaviz MD () on 01/27/2025 10:15:36 PM Electronically Signed By: KEVIN GALAVIZ MD 01/27/25 2215 PATIENT NAME: ROBIN GAYTAN Electrocardiogram DATE OF : 43 PHYSICIAN: KEVIN GALAVIZ MD REPORT #: [id number] REPORT IS CONFIDENTIAL AND NOT TO BE RELEASED WITHOUT AUTHORIZATION
== END 2025-01-27 15:02 | disposition home or self-care (01) ==
LOC: ED 23:09 → MS 23:11
PROVIDERS: Internal Medicine; ADMIT Family Medicine; ATTEND Family Medicine
DX: R51.9 Headache, unspecified (principal); R42 Dizziness and giddiness; I16.0 Hypertensive urgency; E03.9 Hypothyroidism, unspecified; E87.1 Hypo-osmolality and hyponatremia; K21.9 Gastro-esophageal reflux disease without esophagitis; Z87.891 Personal history of nicotine dependence; Z79.899 Other long term (current) drug therapy
CPT/HCPCS: 36415; 70450; 70496; 70498; 70551; 71045; 80048; 80053; 81003; 83735; 84100; 84443; 84484; 85025; 85651; 86140; 93005; 93010; 96374; 96375; 96376; 97161; 97165; 97530; 99285-25; A9270; G0378; J0360; J1885; Q0177; Q9967